=== PATIENT | female | born 1990 | race Caucasian/White ===

== ENCOUNTER 2018-08-29 07:42 | Inpatient (IN) | payer OTHER ==
[~2018-08-29] VITALS: Ht 167.6 cm; Wt 83.6 kg
[~2018-08-29 07:42] MED LIST: METHYLERGONOVINE 0.2 MG/ML IM ONE
[2018-08-29] MEDS ORDERED: LACTATED RINGERS 1,000 ML IV SCH (07:45)
[2018-08-29] MEDS ORDERED: OXYTOCIN 30U/ 0.9% NaCL 500ML 500 ML IV PRN (07:45)
[2018-08-29] MEDS ORDERED: OXYTOCIN 30U/ 0.9% NaCL 500ML 500 ML IV ONE (07:45)
[2018-08-29] MEDS ORDERED: MISOPROSTOL 200 MCG TABLET ONE ×3 (07:54→15:31)
[2018-08-29] MEDS ORDERED: OXYTOCIN 30U/ 0.9% NaCL 500ML 500 ML ONE ×2 (07:54→15:31)
[2018-08-29] MEDS ORDERED: OXYcodone/APAP 10/325MG TABLET PO PRN (08:00)
[2018-08-29] MEDS ORDERED: OXYcodone IR 5MG TABLET PO PRN (08:00)
[2018-08-29] MEDS ORDERED: MISOPROSTOL 200 MCG TABLET PR PRN (08:00)
[2018-08-29] MEDS ORDERED: ONDANSETRON 2MG/ML, 2ML IVPush PRN (08:00)
[2018-08-29] MEDS ORDERED: CARBOPROST TROMETHAMINE 250 MCG/ML, 1ML IM PRN (08:00)
[2018-08-29] MEDS ORDERED: HYDROcodone/APAP 5/325 TABLET PO PRN (08:00)
[2018-08-29] MEDS ORDERED: MISOPROSTOL 200 MCG TABLET PO PRN (08:00)
[2018-08-29] MEDS ORDERED: METOCLOPRAMIDE 5 MG/ML, 2ML IVPush PRN (08:00)
[2018-08-29] MEDS ORDERED: SODIUM CHLORIDE FLUSH 10ML SYR IVF PRN (08:00)
[2018-08-29] MEDS ORDERED: FENTANYL PF 100 MCG/2ML IVPush PRN ×2 (08:00)
[2018-08-29] MEDS ORDERED: METHYLERGONOVINE 0.2 MG/ML IM PRN (08:00)
[2018-08-29] MEDS ORDERED: SODIUM CITRATE/CITRIC ACID 30 ML UDC PO PRN (08:00)
[2018-08-29] MEDS ORDERED: RHOGAM FROM BLOOD BANK 1 NOTE EA IM/IV PRN (08:00)
[2018-08-29] MEDS ORDERED: ACETAMINOPHEN 325 MG TABLET PO PRN (08:00)
[2018-08-29 08:31] VITALS: BP 135/80
[2018-08-29 08:46] LABS: BASOPHILS # (AUTO) 0.03 x10^3/uL (0-0.1); BASOPHILS % (AUTO) 0 % (0-1); EOSINOPHILS # (AUTO) 0.03 x10^3/uL (0-0.4); EOSINOPHILS % (AUTO) 0 % (1-7); LYMPHOCYTES # (AUTO) 1.39 x10^3/uL (1-3.4); LYMPHOCYTES % (AUTO) 19 % (22-44); MD NO; MEAN CORPUSCULAR HEMOGLOBIN 31.5 pg (27.0-34.8); MEAN CORPUSCULAR HGB CONC 34.3 g/dL (32.4-35.8); MEAN CORPUSCULAR VOLUME 91.7 fL (80-100); MEAN PLATELET VOLUME 8.8 fL (7.4-10.4); MONOCYTES # (AUTO) 0.57 x10^3/uL (0.2-0.8); MONOCYTES % (AUTO) 8 % (2-9); NEUTROPHILS # (AUTO) 5.43 x10^3/uL (1.8-6.8); NEUTROPHILS % (AUTO) 73 % (42-75); PLATELET COUNT 231 x10^3/uL (130-400); RED BLOOD COUNT 4.44 x10^6/uL (3.82-5.3); RED CELL DISTRIBUTION WIDTH 13.1 % (9.6-15.2)
[2018-08-29] MEDS ORDERED: MISOPROSTOL 200 MCG TABLET VG SCH ×2 (11:00)
[2018-08-29] MEDS ORDERED: OXYcodone/APAP 5/325MG TABLET ONE (14:15)
[2018-08-29] MEDS: OXYcodone/APAP 5/325MG TABLET PO PRN (14:18)
[2018-08-29] MEDS ORDERED: METOCLOPRAMIDE 5 MG/ML, 2ML ONE (15:31)
[2018-08-29] MEDS ORDERED: SODIUM CITRATE/CITRIC ACID 30 ML UDC ONE (15:31)
[2018-08-29] MEDS ORDERED: CLINDAMYCIN PMX 900MG/50ML 50 ML ONE (16:15)
[2018-08-29] MEDS ORDERED: PROMETHAZINE 25 MG/ML, 1ML IV PRN (17:00)
[2018-08-29] MEDS ORDERED: ONDANSETRON 2MG/ML, 2ML IV PRN (17:00)
[2018-08-29] MEDS ORDERED: FENTANYL PF 100 MCG/2ML IV PRN (17:00)
[2018-08-29] MEDS ORDERED: OXYcodone 5 MG/5 ML ORAL.SOL UDC PO PRN (17:00)
[2018-08-29] MEDS ORDERED: EPHEDRINE 50 MG/ML, 1ML IVPush PRN (17:00)
[2018-08-29] MEDS ORDERED: MORPHINE SULFATE 4 MG/ML, 1ML IVPush PRN (17:00)
[2018-08-29] MEDS ORDERED: MEPERIDINE/PF 25MG/0.5ML IVPush PRN (17:00)
[2018-08-29 18:44] LABS: BASOPHILS # (AUTO) 0.05 x10^3/uL (0-0.1); BASOPHILS % (AUTO) 0 % (0-1); EOSINOPHILS # (AUTO) 0.02 x10^3/uL (0-0.4); EOSINOPHILS % (AUTO) 0 % (1-7); LYMPHOCYTES # (AUTO) 1.34 x10^3/uL (1-3.4); LYMPHOCYTES % (AUTO) 11 % (22-44); MD NO; MEAN CORPUSCULAR HEMOGLOBIN 31.5 pg (27.0-34.8); MEAN CORPUSCULAR VOLUME 92.7 fL (80-100); MEAN PLATELET VOLUME 8.6 fL (7.4-10.4); MONOCYTES # (AUTO) 0.53 x10^3/uL (0.2-0.8); MONOCYTES % (AUTO) 4 % (2-9); NEUTROPHILS # (AUTO) 10.23 x10^3/uL (1.8-6.8); NEUTROPHILS % (AUTO) 84 % (42-75); PLATELET COUNT 216 x10^3/uL (130-400); RED BLOOD COUNT 3.92 x10^6/uL (3.82-5.3); RED CELL DISTRIBUTION WIDTH 13.3 % (9.6-15.2)
== END 2018-08-29 23:19 | disposition home or self-care (01) | DRG 797 ==
LOC: LDIP 07:42
PROVIDERS: ADMIT Obstetrics & Gynecology; ATTEND Obstetrics & Gynecology
PROC: 3E0P7VZ Introduction of Hormone into Female Reproductive, Via Natural or Artificial Opening (ICD-10-PCS; principal; 2018-08-29)
PROC: 10D17ZZ Extraction of Products of Conception, Retained, Via Natural or Artificial Opening (ICD-10-PCS; 2018-08-29)
PROC: 10E0XZZ Delivery of Products of Conception, External Approach (ICD-10-PCS; 2018-08-29)
DX: O36.4XX0 Maternal care for intrauterine death, not applicable or unspecified (principal); O72.2 Delayed and secondary postpartum hemorrhage; Z37.1 Single stillbirth; Z3A.14 14 weeks gestation of pregnancy; Z86.32 Personal history of gestational diabetes; Z88.0 Allergy status to penicillin
CPT/HCPCS: 36415; 76815; 85025; 86592; 86644; 86645; 86694; 86695; 86696; 86762; 86777; 86778; 86850; 86900; 87340; 88305; G0378; J2210; J2590; J2765; J7120

== ENCOUNTER 2019-12-10 19:09 | Emergency (ER) | payer BC, OTHER ==
[~2019-12-10] VITALS: Ht 167.6 cm; Wt 82.9 kg
[2019-12-10 19:14] VITALS: BP 143/90
[2019-12-10 19:58] LABS: BASOPHILS # (AUTO) 0.05 x10^3/uL (0-0.1); BASOPHILS % (AUTO) 1 % (0-1); EOSINOPHILS # (AUTO) 0.06 x10^3/uL (0-0.4); EOSINOPHILS % (AUTO) 1 % (1-7); LYMPHOCYTES # (AUTO) 1.78 x10^3/uL (1-3.4); LYMPHOCYTES % (AUTO) 18 % (22-44); MD NO; MEAN CORPUSCULAR HEMOGLOBIN 31.6 pg (27.0-34.8); MEAN CORPUSCULAR VOLUME 93.1 fL (80-100); MEAN PLATELET VOLUME 8.7 fL (7.4-10.4); MONOCYTES # (AUTO) 0.72 x10^3/uL (0.2-0.8); MONOCYTES % (AUTO) 7 % (2-9); NEUTROPHILS # (AUTO) 7.35 x10^3/uL (1.8-6.8); NEUTROPHILS % (AUTO) 74 % (42-75); PLATELET COUNT 262 x10^3/uL (130-400); RED BLOOD COUNT 4.39 x10^6/uL (3.82-5.3); RED CELL DISTRIBUTION WIDTH 12.9 % (9.6-15.2)
[2019-12-10 20:11] LABS: ALANINE AMINOTRANSFERASE 31 U/L (12-78); ALBUMIN 3.3 g/dL (3.4-5.0); ANION GAP 7 mmol/L (5-15); CHLORIDE 107 mmol/L (98-107); CREATININE 0.67 mg/dL (0.55-1.02)
[2019-12-10 20:27] LABS: ALKALINE PHOSPHATASE 59 U/L (45-117); BILIRUBIN,TOTAL 0.2 mg/dL (0.2-1.0); TOTAL PROTEIN 7.5 g/dL (6.4-8.2)
[2019-12-10 21:17] LABS: MICROSCOPIC AUTO
[2019-12-10 21:18] LABS: CULTURE INDICATED? YES
== END 2019-12-10 22:07 | disposition home or self-care (01) ==
LOC: ED 21:56
DX: O20.0 Threatened abortion (principal)
CPT/HCPCS: 36415; 76801; 80053; 81001; 84702; 85025; 86901; 87086; 99284

== ENCOUNTER 2020-05-22 13:15 | Outpatient (CLI) | payer BC ==
[~2020-05-22] VITALS: Ht 167.6 cm; Wt 89.4 kg
[2020-05-22 13:33] VITALS: BP 115/77
== END 2020-05-22 15:05 | disposition home or self-care (01) ==
LOC: LDOP 13:15
PROVIDERS: ATTEND Obstetrics & Gynecology
DX: Z34.93 Encounter for supervision of normal pregnancy, unspecified, third trimester (principal); Z3A.35 35 weeks gestation of pregnancy
CPT/HCPCS: 59025; 84112

== ENCOUNTER 2020-06-11 07:37 | Inpatient (IN) | payer BC ==
[~2020-06-11] VITALS: Ht 167.6 cm; Wt 89.5 kg
[2020-06-11] MEDS ORDERED: OXYTOCIN 30U/ 0.9% NaCL 500ML 500 ML IV ONE (08:06)
[2020-06-11] MEDS ORDERED: D5%-LACTATED RINGERS 1,000 ML IV SCH (08:06)
[2020-06-11] MEDS ORDERED: NEWBORN KIT ONE (08:12)
[2020-06-11] MEDS ORDERED: LIDOCAINE 1%, 20ML ONE (08:12)
[2020-06-11] MEDS ORDERED: OXYTOCIN 30U/ 0.9% NaCL 500ML 500 ML ONE ×2 (08:12→14:55)
[2020-06-11] MEDS ORDERED: MISOPROSTOL 200 MCG TABLET ONE ×2 (08:12→17:00)
[2020-06-11] MEDS ORDERED: METOCLOPRAMIDE 5 MG/ML, 2ML IVPush PRN (08:30)
[2020-06-11] MEDS ORDERED: FENTANYL PF 100 MCG/2ML IVPush PRN (08:30)
[2020-06-11] MEDS ORDERED: TERBUTALINE 1 MG/ML, 1ML IVPush PRN (08:30)
[2020-06-11] MEDS ORDERED: TERBUTALINE 1 MG/ML, 1ML SQ PRN (08:30)
[2020-06-11] MEDS ORDERED: ONDANSETRON 2MG/ML, 2ML IVPush PRN (08:30)
[2020-06-11] MEDS: LACTATED RINGERS 1,000 ML IV SCH ×2 (08:43→12:55)
[2020-06-11 08:57] LABS: BASOPHILS # (AUTO) 0.03 x10^3/uL (0-0.1); BASOPHILS % (AUTO) 1 % (0-1); EOSINOPHILS # (AUTO) 0.03 x10^3/uL (0-0.4); EOSINOPHILS % (AUTO) 1 % (1-7); LYMPHOCYTES # (AUTO) 1.24 x10^3/uL (1-3.4); LYMPHOCYTES % (AUTO) 19 % (22-44); MD NO; MEAN CORPUSCULAR HEMOGLOBIN 30.8 pg (27.0-34.8); MEAN CORPUSCULAR HGB CONC 32.7 g/dL (32.4-35.8); MONOCYTES # (AUTO) 0.64 x10^3/uL (0.2-0.8); MONOCYTES % (AUTO) 10 % (2-9); NEUTROPHILS # (AUTO) 4.75 x10^3/uL (1.8-6.8); NEUTROPHILS % (AUTO) 71 % (42-75); PLATELET COUNT 160 x10^3/uL (130-400); RED BLOOD COUNT 4.41 x10^6/uL (3.82-5.3); RED CELL DISTRIBUTION WIDTH 14.2 % (9.6-15.2)
[2020-06-11 09:21] VITALS: BP 134/89
[2020-06-11] MEDS ORDERED: IBUPROFEN 600 MG TABLET ONE (14:55)
[2020-06-11] MEDS: IBUPROFEN 600 MG TABLET PO PRN ×2 (14:57→22:23)
[2020-06-11] MEDS: OXYTOCIN 30U/ 0.9% NaCL 500ML 500 ML IV SCH (14:58)
[2020-06-11] MEDS ORDERED: RHOGAM FROM BLOOD BANK 1 NOTE EA IM/IV ONE (15:00)
[2020-06-11] MEDS ORDERED: IBUPROFEN 800 MG TABLET PO PRN (15:00)
[2020-06-11] MEDS ORDERED: MISOPROSTOL 200 MCG TABLET PR PRN (15:00)
[2020-06-11] MEDS ORDERED: IBUPROFEN 200 MG TABLET PO PRN (15:00)
[2020-06-11] MEDS ORDERED: HYDROcodone/APAP 5/325 TABLET PO PRN (15:00)
[2020-06-11] MEDS ORDERED: BISACODYL 10 MG SUPP PR PRN (15:00)
[2020-06-11] MEDS ORDERED: ACETAMINOPHEN 325 MG TABLET PO PRN (15:00)
[2020-06-11] MEDS ORDERED: OXYcodone/APAP 5/325MG TABLET PO PRN (15:00)
[2020-06-11] MEDS ORDERED: ONDANSETRON 2MG/ML, 2ML IV PRN (15:00)
[2020-06-11] MEDS ORDERED: DOCUSATE 100 MG CAPSULE PO PRN (15:00)
[2020-06-11 20:10] VITALS: BP 110/67
[2020-06-11 23:52] VITALS: BP 113/77
[2020-06-12] MEDS: OXYTOCIN 30U/ 0.9% NaCL 500ML 500 ML IV SCH ×2 (00:36→09:31)
[2020-06-12 04:15] VITALS: BP 108/71
[2020-06-12] MEDS: IBUPROFEN 600 MG TABLET PO PRN ×2 (07:41→15:08)
[2020-06-12 07:45] VITALS: BP 121/84
[2020-06-12 07:52] LABS: MEAN CORPUSCULAR HEMOGLOBIN 30.7 pg (27.0-34.8); MEAN CORPUSCULAR HGB CONC 32.2 g/dL (32.4-35.8); MEAN PLATELET VOLUME 10.3 fL (7.4-10.4); PLATELET COUNT 184 x10^3/uL (130-400); RED CELL DISTRIBUTION WIDTH 14.1 % (9.6-15.2)
[2020-06-12 08:31] LABS: BASOPHILS # (AUTO) 0.09 x10^3/uL (0-0.1); BASOPHILS % (AUTO) 1 % (0-1); EOSINOPHILS # (AUTO) 0.02 x10^3/uL (0-0.4); EOSINOPHILS % (AUTO) 0 % (1-7); LYMPHOCYTES # (AUTO) 1.63 x10^3/uL (1-3.4); LYMPHOCYTES % (AUTO) 13 % (22-44); MD SCAN; MONOCYTES # (AUTO) 1.02 x10^3/uL (0.2-0.8); MONOCYTES % (AUTO) 8 % (2-9); NEUTROPHILS # (AUTO) 10.17 x10^3/uL (1.8-6.8); NEUTROPHILS % (AUTO) 79 % (42-75)
[2020-06-12] MEDS ORDERED: PRENATAL VIT/IRON/FA 1 EACH TABLET PO SCH (09:00)
[2020-06-12] MEDS ORDERED: DOCU-131 PO (10:41)
[2020-06-12] MEDS ORDERED: IBUP-1223 PO (10:41)
[2020-06-12 12:30] VITALS: BP 122/83
== END 2020-06-12 16:04 | disposition home or self-care (01) | DRG 807 ==
LOC: LDOP 07:37 → LDIP 08:12 → 2NW 21:12
PROVIDERS: ADMIT Obstetrics & Gynecology; ATTEND Obstetrics & Gynecology
PROC: 10E0XZZ Delivery of Products of Conception, External Approach (ICD-10-PCS; principal; 2020-06-11)
DX: O24.420 Gestational diabetes mellitus in childbirth, diet controlled (principal); Z37.0 Single live birth; Z3A.38 38 weeks gestation of pregnancy; Z80.3 Family history of malignant neoplasm of breast; Z88.0 Allergy status to penicillin
CPT/HCPCS: 82962; 85025; 86592; 86850; 86900; G0378; J2590; J7120